=== PATIENT | male | born 1960 | race African-American/Black ===

== ENCOUNTER 2017-10-14 10:34 | Inpatient (IN) | payer OTHER ==
[~2017-10-14 10:34] MED LIST: CEFAZOLIN 1 GM/50 ML (PMX) 50 ML IVPB
[2017-10-14] MEDS: LACTATED RINGER'S 1,000 ML IV (11:54)
[2017-10-14] MEDS ORDERED: POLYMYXIN/BACITRACIN 1L IRRIG (12:45)
[2017-10-14] MEDS ORDERED: BUPIVACAINE 0.75%/DEXT (SPINAL) 2 ML INJ (13:51)
[2017-10-14] MEDS ORDERED: morphine SULFATE/PF (10 MG/10 ML) INJ (13:52)
[2017-10-14] MEDS ORDERED: PHENYLephrine (100 MCG/ML) 5ML SYG (14:06)
[2017-10-14] MEDS ORDERED: MIDAZOLAM 1 MG/ML 2 ML INJ (14:06)
[2017-10-14] MEDS ORDERED: SUGAMMADEX SODIUM 200 MG/2 ML VIAL IV (14:28)
[2017-10-14] MEDS ORDERED: LABETALOL HCL 20MG INJ (14:28)
[2017-10-14] MEDS ORDERED: SUCCINYLCHOLINE CHLORIDE 100 MG/5 ML SYG IV (14:28)
[2017-10-14] MEDS ORDERED: CEFAZOLIN 1 GM INJ (14:28)
[2017-10-14] MEDS ORDERED: ROCURONIUM 50 MG INJ (14:28)
[2017-10-14] MEDS ORDERED: PROPOFOL 20 ML (14:28)
[2017-10-14] MEDS ORDERED: DIPHENHYDRAMINE 50 MG INJ IV (14:30)
[2017-10-14] MEDS ORDERED: LABETALOL HCL 20MG INJ IV (14:30)
[2017-10-14] MEDS ORDERED: HYDROmorphONE 1 MG/5 ML IV SYRINGE IV ×2 (14:30)
[2017-10-14] MEDS ORDERED: METOCLOPRAMIDE 10 MG INJ IV (14:30)
[2017-10-14] MEDS ORDERED: OXYCODONE/ACETAMINOPHEN (5/325) TAB PO (14:30)
[2017-10-14] MEDS ORDERED: hydrALAzine 20 MG INJ IV (14:30)
[2017-10-14] MEDS ORDERED: FENTAnyl 50 MCG/ML VIAL IV ×2 (14:30)
[2017-10-14] MEDS ORDERED: ALBUTEROL 0.083% (NEB) 2.5 MG/3 ML AMP HHN (14:30)
[2017-10-14] MEDS ORDERED: ONDANSETRON 4 MG INJ IV (14:30)
[2017-10-14] MEDS: NEOMYC/POLYMYX/BACIT 30 GM OINT (14:54)
[2017-10-14 17:06] LABS: HEMOGLOBIN 12.7 g/dl (14.0-18.0)
[2017-10-14 17:32] LABS: ANION GAP 10 (8-16); BLOOD UREA NITROGEN 12 mg/dl (7-20); CALCIUM 8.1 mg/dl (8.4-10.2); CARBON DIOXIDE 25 mmol/L (21-31); CHLORIDE 108 mmol/L (97-110); CREATININE 0.98 mg/dl (0.61-1.24); GLUCOSE 100 mg/dl (70-220); POTASSIUM 3.6 mmol/L (3.5-5.1); SODIUM 139 mmol/L (135-144)
[2017-10-14] MEDS: MEPERIDINE 25 MG INJ IV (19:09)
[2017-10-14] MEDS: HYDROmorphONE 1 MG/5 ML IV SYRINGE IV (19:10)
[2017-10-14] MEDS: FENTAnyl 50 MCG/ML VIAL IV (19:10)
[2017-10-14] MEDS: HYDROmorphONE 1 MG/ML SYG IV (21:02)
[2017-10-14] MEDS: LORAZEPAM 2 MG INJ IV (21:24)
[2017-10-14] MEDS: KETOROLAC 30 MG INJ IV (22:40)
[2017-10-14] MEDS: ONDANSETRON 4 MG INJ IV (22:40)
[2017-10-14] MEDS: DEXTROSE 5%-0.9% NACL 1,000 ML IV (22:40)
[2017-10-15] MEDS: HYDROmorphONE 1 MG/ML SYG IV ×8 (00:18→23:41)
[2017-10-15] MEDS: LORAZEPAM 2 MG INJ IV ×3 (03:25→21:36)
[2017-10-15 05:05] LABS: ADD MAN DIFF? NO
[2017-10-15 05:08] LABS: WHITE BLOOD COUNT 13.7 10^3/ul (4.8-10.8)
[2017-10-15 05:08] LABS: BASOPHILS % 0.3 % (0.0-2.0); EOSINOPHILS % 0.2 % (0.0-7.0); HEMATOCRIT 34.4 % (42.0-52.0); HEMOGLOBIN 11.2 g/dl (14.0-18.0); LYMPHOCYTES # 1.3 10^3/ul (0.8-2.9); LYMPHOCYTES % 9.7 % (15.0-51.0); MEAN CORPUSCULAR HEMOGLOBIN 29.1 pg (29.0-33.0); MEAN CORPUSCULAR HGB CONC 32.6 g/dl (32.0-37.0); MEAN CORPUSCULAR VOLUME 89.4 fl (82.0-101.0); MEAN PLATELET VOLUME 10.8 fl (7.4-10.4); MONOCYTE # 1.5 10^3/ul (0.3-0.9); MONOCYTES % 10.9 % (0.0-11.0); NEUTROPHIL # 10.7 10^3/ul (1.6-7.5); NEUTROPHILS % 78.5 % (39.0-77.0); PLATELET COUNT 167 10^3/UL (140-415); RED BLOOD COUNT 3.85 10^6/ul (4.70-6.10); RED CELL DISTRIBUTION WIDTH 13.8 % (11.5-14.5)
[2017-10-15 05:33] LABS: ANION GAP 11 (8-16); BLOOD UREA NITROGEN 10 mg/dl (7-20); CALCIUM 7.9 mg/dl (8.4-10.2); CARBON DIOXIDE 26 mmol/L (21-31); CHLORIDE 102 mmol/L (97-110); CREATININE 0.66 mg/dl (0.61-1.24); GLUCOSE 127 mg/dl (70-220); POTASSIUM 3.8 mmol/L (3.5-5.1); SODIUM 135 mmol/L (135-144)
[2017-10-15] MEDS: HYDROCODONE/APAP (5/325) TAB PO ×3 (10:11→20:28)
[2017-10-15] MEDS: KETOROLAC 30 MG INJ IV (11:15)
[2017-10-15] MEDS: CA CARBONATE (250 MG/ML) 5ML CUP GTB ×2 (11:16→20:33)
[2017-10-15] MEDS: LACTATED RINGER'S 1,000 ML IV (11:30)
[2017-10-15] MEDS: DEXTROSE 5%-0.9% NACL 1,000 ML IV (19:07)
[2017-10-16] MEDS: HYDROCODONE/APAP (5/325) TAB PO ×3 (02:43→12:04)
[2017-10-16] MEDS: HYDROmorphONE 1 MG/ML SYG IV ×2 (04:57→08:50)
[2017-10-16 05:11] LABS: ADD MAN DIFF? NO
[2017-10-16 05:19] LABS: ABNORMAL IP MESSAGE 1; BASOPHILS % 0.2 % (0.0-2.0); EOSINOPHILS # 0.1 10^3/ul (0.0-0.5); EOSINOPHILS % 0.8 % (0.0-7.0); HEMATOCRIT 29.7 % (42.0-52.0); HEMOGLOBIN 9.7 g/dl (14.0-18.0); LYMPHOCYTES # 1.2 10^3/ul (0.8-2.9); LYMPHOCYTES % 11.4 % (15.0-51.0); MEAN CORPUSCULAR HEMOGLOBIN 29.2 pg (29.0-33.0); MEAN CORPUSCULAR HGB CONC 32.7 g/dl (32.0-37.0); MEAN CORPUSCULAR VOLUME 89.5 fl (82.0-101.0); MEAN PLATELET VOLUME 11.1 fl (7.4-10.4); MONOCYTE # 1.7 10^3/ul (0.3-0.9); MONOCYTES % 16.1 % (0.0-11.0); NEUTROPHIL # 7.5 10^3/ul (1.6-7.5); NEUTROPHILS % 71.1 % (39.0-77.0); PLATELET COUNT 145 10^3/UL (140-415); POSITIVE DIFF @See below; RED BLOOD COUNT 3.32 10^6/ul (4.70-6.10); RED CELL DISTRIBUTION WIDTH 13.4 % (11.5-14.5)
[2017-10-16 05:19] LABS: WHITE BLOOD COUNT 10.5 10^3/ul (4.8-10.8)
[2017-10-16 07:54] LABS: ANION GAP 9 (8-16); BLOOD UREA NITROGEN 7 mg/dl (7-20); CALCIUM 8.4 mg/dl (8.4-10.2); CARBON DIOXIDE 26 mmol/L (21-31); CHLORIDE 104 mmol/L (97-110); CREATININE 0.73 mg/dl (0.61-1.24); GLUCOSE 106 mg/dl (70-220); POTASSIUM 3.6 mmol/L (3.5-5.1); SODIUM 135 mmol/L (135-144)
[2017-10-16] MEDS: CA CARBONATE (250 MG/ML) 5ML CUP GTB ×2 (08:51→19:56)
[2017-10-16] MEDS: KETOROLAC 30 MG INJ IV ×2 (14:24→14:31)
[2017-10-16] MEDS ORDERED: OXYCODONE/ACETAMINOPHEN (5/325) TAB PO (14:30)
[2017-10-16] MEDS: LUBIPROSTONE 8 MCG CAPSULE PO ×2 (15:00→19:57)
[2017-10-16] MEDS: OXYCODONE/ACETAMINOPHEN (10/325) TAB PO ×2 (15:51→19:57)
[2017-10-16] MEDS: ASPIRIN 325 MG TAB PO (20:12)
[2017-10-17] MEDS: OXYCODONE/ACETAMINOPHEN (10/325) TAB PO ×3 (00:55→13:41)
[2017-10-17 06:00] LABS: ADD MAN DIFF? NO
[2017-10-17 06:21] LABS: BASOPHILS % 0.4 % (0.0-2.0); EOSINOPHILS # 0.2 10^3/ul (0.0-0.5); EOSINOPHILS % 1.6 % (0.0-7.0); HEMATOCRIT 30.1 % (42.0-52.0); HEMOGLOBIN 9.7 g/dl (14.0-18.0); LYMPHOCYTES # 1.7 10^3/ul (0.8-2.9); MEAN CORPUSCULAR HEMOGLOBIN 28.9 pg (29.0-33.0); MEAN CORPUSCULAR HGB CONC 32.2 g/dl (32.0-37.0); MEAN CORPUSCULAR VOLUME 89.6 fl (82.0-101.0); MEAN PLATELET VOLUME 11.6 fl (7.4-10.4); MONOCYTE # 1.3 10^3/ul (0.3-0.9); MONOCYTES % 13.2 % (0.0-11.0); NEUTROPHIL # 6.7 10^3/ul (1.6-7.5); NEUTROPHILS % 67.4 % (39.0-77.0); PLATELET COUNT 163 10^3/UL (140-415); RED BLOOD COUNT 3.36 10^6/ul (4.70-6.10); RED CELL DISTRIBUTION WIDTH 13.7 % (11.5-14.5)
[2017-10-17] MEDS: PANTOPRAZOLE (EC) 40 MG TAB PO (06:36)
[2017-10-17 06:50] LABS: ANION GAP 11 (8-16); BLOOD UREA NITROGEN 6 mg/dl (7-20); CALCIUM 8.8 mg/dl (8.4-10.2); CARBON DIOXIDE 30 mmol/L (21-31); CHLORIDE 102 mmol/L (97-110); CREATININE 0.75 mg/dl (0.61-1.24); GLUCOSE 108 mg/dl (70-220); POTASSIUM 3.7 mmol/L (3.5-5.1); SODIUM 139 mmol/L (135-144)
[2017-10-17] MEDS: LUBIPROSTONE 8 MCG CAPSULE PO (08:14)
[2017-10-17] MEDS: ASPIRIN 325 MG TAB PO (08:14)
[2017-10-17] MEDS: CA CARBONATE (250 MG/ML) 5ML CUP GTB (08:15)
== END 2017-10-17 14:43 | disposition home or self-care (01) | DRG 470 ==
LOC: REC 10:34 → MS1 10-15 20:00
PROC: 0SRC069 Replacement of Right Knee Joint with Oxidized Zirconium on Polyethylene Synthetic Substitute, Cemented, Open Approach (ICD-10-PCS; principal; 2017-10-14 12:30)
DX: M17.11 Unilateral primary osteoarthritis, right knee (principal); I10 Essential (primary) hypertension; E83.51 Hypocalcemia; J45.909 Unspecified asthma, uncomplicated; I73.9 Peripheral vascular disease, unspecified; Z95.828 Presence of other vascular implants and grafts; Z89.431 Acquired absence of right foot; D64.9 Anemia, unspecified; E66.3 Overweight; Z68.26 Body mass index [BMI] 26.0-26.9, adult; K59.00 Constipation, unspecified; Z79.82 Long term (current) use of aspirin
CPT/HCPCS: 80048; 85014; 85018; 85025; 87086; 88304; 88311; 97110; 97116; 97161; 97530

== ENCOUNTER 2018-09-24 10:23 | Day surgery (SDC) | payer OTHER ==
[2018-09-24] MEDS ORDERED: CEFAZOLIN 1 GM/50 ML (PMX) 50 ML IVPB (11:00)
[2018-09-24] MEDS ORDERED: PROPOFOL 200 MG INJ (14:19)
[2018-09-24] MEDS ORDERED: FENTAnyl 50 MCG/ML VIAL ×2 (14:19→14:39)
[2018-09-24] MEDS ORDERED: CEFAZOLIN 1 GM INJ (14:19)
[2018-09-24] MEDS ORDERED: MIDAZOLAM 1 MG/ML 2 ML INJ (14:19)
[2018-09-24] MEDS ORDERED: LABETALOL HCL 20MG INJ IV (15:00)
[2018-09-24] MEDS ORDERED: FENTAnyl 50 MCG/ML VIAL IV ×2 (15:00)
[2018-09-24] MEDS ORDERED: HYDROmorphONE 1 MG/5 ML IV SYRINGE IV ×2 (15:00)
[2018-09-24] MEDS: BUPIVACAINE 0.5%/EPI (SDV) 30 ML INJ (15:00)
[2018-09-24] MEDS ORDERED: ONDANSETRON 4 MG INJ IV (15:00)
[2018-09-24] MEDS ORDERED: METOCLOPRAMIDE 10 MG INJ IV (15:00)
[2018-09-24] MEDS ORDERED: hydrALAzine 20 MG INJ IV (15:00)
== END 2018-09-24 16:15 | disposition home or self-care (01) ==
LOC: SDS 10:23
DX: L92.3 Foreign body granuloma of the skin and subcutaneous tissue (principal); Z96.651 Presence of right artificial knee joint; I10 Essential (primary) hypertension; J45.909 Unspecified asthma, uncomplicated
CPT/HCPCS: 10120